=== PATIENT | male | born 1970 | race Caucasian/White ===

== ENCOUNTER → 2016-10-19 | Outpatient (CLI) | payer BC ==
--- NOTE | 2016-10-24 21:01 | HOLTMON ---
[facility] Test Date: 2016-10-19 Pat Name: LETY CORDON Department: Room: - Gender: Technical Documentation Specialist: BILL CABA : 1970 Requested By: Marcelina Hull Order Number: [id number] Reading MD: Jimbo Arellano Interpretive Statements Patient was monitored for 24 hours. Sinus rhythm with normal AV conduction was the baseline mechanism. Minimum HR was 57bpm, average HR 85 bpm and maximum HR 162 bpm. There were 3 PAC's and 309 isolated PVC's. No pauses, no supraventricular or ventricular runs. Patient did not report any symptoms. Normal Holter monitor. Electronically Signed On 10-24-2016 21:01:01 EDT by Jimbo Arellano
== END ==
LOC: M EKG 09:36
PROVIDERS: ATTEND Registered Nurse
DX: R00.2 Palpitations (principal)

== ENCOUNTER → 2020-11-30 | Outpatient (CLI) | payer BC ==
[~2020-11-30] MED LIST: AMLO1TAB24; AMLO1TAB25; ECOT81TA5 PO; FAMO40TA3; IRBE300T12; METO1TAB7
== END ==
LOC: M LABSMTC 08:06
PROVIDERS: ATTEND Internal Medicine Gastroenterology
DX: Z01.812 Encounter for preprocedural laboratory examination (principal); Z20.822 Contact with and (suspected) exposure to COVID-19

== ENCOUNTER 2020-12-05 12:04 | Day surgery (SDC) | payer BC ==
[~2020-12-05] VITALS: Ht 177.8 cm; Wt 111.5 kg
[~2020-12-05 12:04] MED LIST changes: +NS 1,000 ML IV ONE
[2020-12-05] MEDS ORDERED: propofoL 200 MG/20 ML VIAL As Ordered ONE ×3 (13:47→14:05)
--- NOTE | 2020-12-05 14:27 | ROOR ---
Patient Name: Stewart Del Angel Procedure Date: 12/05/2020 1:38 PM Date of : 1970 Age: 50 Room: [facility] Gender: Male Note Status: Finalized Procedure: Colonoscopy Indications: Screening for colorectal malignant neoplasm Providers: Tu Morocho MD Referring MD: Lance Ramírez Do Requesting Provider: Medicines: Monitored Anesthesia Care Complications: No immediate complications. Procedure: Pre-Anesthesia Assessment: - Prior to the procedure, a History and Physical was performed, and patient medications and allergies were reviewed. The patient is competent. The risks and benefits of the procedure and the sedation options and risks were discussed with the patient. All questions were answered and informed consent was obtained. Patient identification and proposed procedure were verified by the physician, the nurse and the anesthesiologist in the procedure room. Mental Status Examination: alert and oriented. Airway Examination: normal oropharyngeal airway and neck mobility. Respiratory Examination: clear to auscultation. CV Examination: normal. Prophylactic Antibiotics: The patient does not require prophylactic antibiotics. Prior Anticoagulants: The patient has taken no previous anticoagulant or antiplatelet agents. ASA Grade Assessment: II - A patient with mild systemic disease. After reviewing the risks and benefits, the patient was deemed in satisfactory condition to undergo the procedure. The anesthesia plan was to use monitored anesthesia care (MAC). Immediately prior to administration of medications, the patient was re-assessed for adequacy to receive sedatives. The heart rate, respiratory rate, oxygen saturations, blood pressure, adequacy of pulmonary ventilation, and response to care were monitored throughout the procedure. The physical status of the patient was re-assessed after the procedure. The Colonoscope was introduced through the anus and advanced to the terminal ileum, with identification of the appendiceal orifice and IC valve. The colonoscopy was performed without difficulty. The patient tolerated the procedure well. The quality of the bowel preparation was fair. The terminal ileum, ileocecal valve, appendiceal orifice, and rectum were photographed. Scope insertion time was 2 minutes. Scope withdrawal time was 12 minutes. The total duration of the procedure was 14 minutes. Findings: The perianal and digital rectal examinations were normal. The terminal ileum appeared normal. A moderate amount of semi-liquid stool was found from transverse colon to cecum, interfering with visualization. Lavage of the area was performed using a large amount of sterile water, resulting in clearance with good visualization. Non-bleeding external and internal hemorrhoids were found during retroflexion. The hemorrhoids were small. Impression: - Preparation of the colon was fair. - The examined portion of the ileum was normal. - Stool from transverse colon to cecum. - Non-bleeding external and internal hemorrhoids. - No specimens collected. Recommendation: - Patient has a contact number available for emergencies. The signs and symptoms of potential delayed complications were discussed with the patient. Return to normal activities tomorrow. Written discharge instructions were provided to the patient. - High fiber diet. - Continue present medications. - Repeat colonoscopy in 5 years for screening purposes and because the bowel preparation was suboptimal. - Telephone GI clinic if symptomatic in 2 weeks. - Return to primary care physician. - Return to GI clinic in 5 years. Procedure Code(s): --- Professional --- 60584, Colonoscopy, flexible; diagnostic, including collection of specimen(s) by brushing or washing, when performed (separate procedure) Diagnosis Code(s): --- Professional --- Z12.11, Encounter for screening for malignant neoplasm of colon K64.8, Other hemorrhoids CPT copyright 2019 [employer]. All rights reserved. The codes documented in this report are preliminary and upon ornament stitcher review may be revised to meet current compliance requirements. Tu Morocho MD Tu Morocho MD 12/05/2020 2:27:19 PM Electronically signed by Tu Morocho MD Number of Addenda: 0 Note Initiated On: 12/05/2020 1:38 PM Estimated Blood Loss: Estimated blood loss was minimal.
[2020-12-05 14:40] VITALS: BP 137/78
== END 2020-12-05 14:42 | disposition home or self-care (01) ==
LOC: M OPP 12:04
PROVIDERS: ATTEND Internal Medicine Gastroenterology
DX: Z12.11 Encounter for screening for malignant neoplasm of colon (principal); K64.8 Other hemorrhoids; Z79.82 Long term (current) use of aspirin; Z79.899 Other long term (current) drug therapy

== ENCOUNTER → 2024-04-04 | Outpatient (REF) ==
[~2024-04-04] MED LIST changes: -NS 1,000 ML IV ONE
== END ==
LOC: M SLEEP HO 11:00
PROVIDERS: ATTEND Student in an Organized Health Care Education/Training Program
DX: G47.33 Obstructive sleep apnea (adult) (pediatric) (principal)

== ENCOUNTER → 2024-05-09 | Outpatient (REF) | payer BC | LOC: M LAB REF 15:16 | PROVIDERS: ATTEND Internal Medicine Endocrinology, Diabetes & Metabolism | DX: E04.2 Nontoxic multinodular goiter (principal) ==